=== PATIENT | female | born 1970 | race Caucasian/White ===

== ENCOUNTER 2016-02-17 13:44 | Observation (INO) ==
[2016-02-17] MEDS ORDERED: ONDANSETRON 4 MG/2 ML VIAL IV STA (14:58)
[2016-02-17] MEDS ORDERED: SODIUM CHLORIDE 0.9% 500 ML IV STA (14:58)
[2016-02-17] MEDS ORDERED: PANTOPRAZOLE 40 MG VIAL IV STA (14:58)
--- NOTE | 2016-02-17 15:00 | Emergency Department Note ---
Jared Nunez Meredith, am scribing for, and in the presence of, Jamar Johansen MD 14:58. Eleno Nunez Charles R, MD, personally performed the services described in this documentation, ascribed by Slime Coleman in my presence, and it is both accurate and complete . Arrival - Arrival Chief Complaint: GI Bleed/Rectal Stated Complaint: rectal bleed ED Nursing Triage Note: PT REPORTS BRIGHT RED RECTAL BLEEDING WITH CLOTS, ONSET 1300 TODAY. PT STATES SHE FELT LIKE SHE HAD TO HAVE BM BUT IT WAS LARGE AMOUNT OF BLOOD INSTEAD. PT STATES SOAKED A PAD IN THE PAST HOUR. REPORTS DULL ABD PAIN. Mode of Arrival: Ambulatory Limitations: No Limitations Source: Patient, RN Notes Reviewed Time Seen by Provider: 02/17/16 14:50 - History of Present Illness HPI Narrative: Pt is a 45 y/o white female reporting to the ED with c/o of bright red rectal bleeding with clots which onset at 1300. She filled one pad with blood in the past hour. Pt confirms recent abdominal pain and abdominal distention which she thought was related to a recent kidney stone. She has had a hysterectomy. Onset (ago): hour(s) Allergies/Adverse Reactions: Allergies Allergy/AdvReac Type Severity Reaction Status Date / Time No Known Allergies Allergy Verified 02/17/16 13:53 Home Medications: Home Medications Medication Instructions Recorded Confirmed Type No Known Home Medications [No 02/17/16 02/17/16 History Known Home Medications] Review of System - Review of System 12 point system: reviewed and no additional remarkable complaints except as stated - Review of System Gastrointestinal: Present: as per HPI, abdominal pain (with distention ), other (rectal bleeding ) Medical,Surgical,& Family Hx - Medical History Genitourinary: History of: Kidney Stones - Surgical History Reproductive Surgeries: Surgical HX of;: Hysterectomy (1997) - Social History Smoking Status: Never smoker Frequency of Alcohol Use: None Type of Drug Use: None Exam Vital Signs: Vital Signs Temperature 98.8 F 02/17/16 13:50 Pulse Rate 74 02/17/16 16:00 Respiratory Rate 20 02/17/16 16:00 Blood Pressure 105/73 02/17/16 16:00 O2 Sat by Pulse Oximetry 97 02/17/16 16:00 - General General appearance: alert, in no apparent distress - Head Head exam: Present: atraumatic, normocephalic - Eye Eye exam: Present: normal appearance, PERRL, EOMI - ENT ENT exam: Present: mucous membranes moist, normal external ear exam - Neck Neck exam: Present: full ROM, trachea midline. Absent: tenderness, meningismus , lymphadenopathy, thyromegaly - Chest Chest inspection: Present: symmetric chest wall rise. Absent: tenderness, rash - Respiratory Respiratory exam: Present: normal lung sounds bilaterally. Absent: respiratory distress - Cardiovascular Cardiovascular exam: Present: regular rate, normal rhythm, normal heart sounds. Absent: murmur, rubs, gallop - Abdominal Exam Abdominal exam: Present: distention, tenderness (left lower quadrant ), normal bowel sounds - Extremities Exam Extremities exam: Present: full ROM, normal capillary refill. Absent: tenderness, pedal edema, calf tenderness - Back Exam Back exam: Present: full ROM. Absent: tenderness - Neurological Exam Neurological exam: Present: alert, oriented X3, CN II-XII intact. Absent: motor sensory deficit - Psychiatric Psychiatric exam: Present: normal affect, normal mood - Skin Skin exam: Present: warm, dry, intact, normal color Course - Consultations Consultation #1: Dr. Rosado will admit for Dr. Schafer Time: 16:53 Results - Labs CBC & BMP: 02/17/16 15:24 02/17/16 15:24 Lab Results: I have reviewed the patients labs Labs: Laboratory Tests 02/17/16 02/17/16 02/17/16 15:24 15:24 15:24 WBC 9.6 RBC 4.79 Hgb 14.1 Hct 41.7 Plt Count 301 Meigs # (Auto) 0.9 H INR 1.0 PT Patient/Control Mix 10.0 Circ Anticoag PTT 27.6 Sodium 142 Potassium 3.3 L Chloride 107 Carbon Dioxide 26 BUN 11 Creatinine 0.70 Glucose 73 L Magnesium 2.5 H Troponin I < 0.015 Globulin 4.1 H Albumin/Globulin Ratio 0.9 L - Diagnostic Findings Procedure: Abdominal x-ray: report reviewed by me (Increased stool volume in the colon may indicate constipation. ), Chest x-ray: report reviewed by me (No acute cardiopulmonary process. ) Disposition Clinical Impression: Lower gastrointestinal hemorrhage Case discussed with: patient Disposition: Still a Patient Condition: Stable Time of Disposition: 16:53
[2016-02-17] MEDS ORDERED: PANTOPRAZOLE 40 MG VIAL IV ONE (15:27)
[2016-02-17] MEDS ORDERED: ONDANSETRON 4 MG/2 ML VIAL ONE (15:27)
[2016-02-17 15:33] LABS: Basophils # 0.1 10*3/uL (0.0-0.2); Basophils % 0.5 % (0.0-0.8); Eosinophils # 0.2 10*3/uL (0.0-0.87); Eosinophils % 1.7 % (0.00-10.9); Hematocrit 41.7 VOL% (35.7-47.0); Hemoglobin 14.1 GM/DL (12.0-16.0); Immature Granulocytes % 0.2 %; Immature Granulocytes Absolute 0.02 #; Lymphocytes # 2.6 10*3/uL (1.4-4.0); Lymphocytes % 27.2 % (21.3-54.2); Mean Corpuscular HGB Conc 33.8 GM/DL (32-36); Mean Corpuscular Hemoglobin 29 PG (27-34); Mean Corpuscular Volume 87.1 FL (87-102); Mean Platelet Volume 10.4 FL (9.6-12.0); Monocytes # 0.9 10*3/uL (0.11-0.8); Monocytes % 9.3 % (1.7-12.7); Neutrophils # 5.9 10*3/uL (1.4-7.4); Neutrophils % 61.1 % (38.7-73.9); Platelet Count 301 10*3/uL (130-400); Red Blood Count 4.79 10*6/uL (3.8-5.5); Red Cell Distribution Width 13.2 % (9.3-17.3); White Blood Count 9.6 10*3/uL (4.5-13.71)
[2016-02-17 15:43] LABS: Partial Thromboplastin Time 27.6 SECS (0-40)
--- NOTE | 2016-02-17 15:54 | XRay Report ---
XR abdomen 2V Indication: Abdominal pain Comparison: None available Findings: No free fluid or free air seen. Increased stool volume is seen in the colon. The bowel gas pattern otherwise appears within normal limits. No abnormal calcifications are present. No other abnormality is identified. Impression: Increased stool volume in the colon, may indicate constipation. PROCEDURE INTERPRETED AT [facility] DEPARTMENT OF RADIOLOGY Final Report Signed by: Dr. Aashish Mejia
--- NOTE | 2016-02-17 15:54 | XRay Report ---
XR chest 1V Indication: SOB Comparison: None Technique: Single frontal view of the chest Findings: Heart size appears within normal limits. No focal consolidation, pleural effusion, or pneumothorax. Osseous and surrounding soft tissue structures demonstrate no acute abnormality. Cervical fusion hardware noted within the lower cervical spine. IMPRESSION: No acute cardiopulmonary process demonstrated. PROCEDURE INTERPRETED AT [facility] DEPARTMENT OF RADIOLOGY Final Report Signed by: Dr Lex Borja
--- NOTE | 2016-02-17 15:55 | EKG Report ---
Stationary ECG Study [facility] ER Test Date: 02/17/2016 3:51:05 PM Pat Name: SAHIL CASTRO Department: Room: Gender: F Wine Specialist: COLIN : 1970 Requested by: Jamar Clark Order Number: [id number] Reading MD: JESUS PRINGLE Intervals [place] Rate: 71 P: 43 ND: 148 QRS: 17 QRSD: 82 T: 26 QT: 395 QTc: 417 Interpretive Statements SINUS RHYTHM at 71 bpm LOW QRS VOLTAGE IN PRECORDIAL LEADS WNL Electronically Signed On 02-17-16 16:31:40 GRASS [employer]UTTER by JESUS PRINGLE [email or web address]
[2016-02-17 16:03] LABS: Alanine Aminotransferase 20 U/L (13-56); Albumin 3.8 G/DL (3.4-5.0); Alkaline Phosphatase 74 U/L (45-117); Aspartate Amino Transferase 14 U/L (0-37); Bilirubin,Total < 0.39 MG/DL (0.2-1.0); Blood Urea Nitrogen 11 MG/DL (7-18); Calcium 8.7 MG/DL (8.5-10.1); Glucose 73 MG/DL (74-106); Magnesium 2.5 MG/DL (1.8-2.4); Osmolality,Calculated 280.1 MOS/KG (273-304); Potassium 3.3 MMOL/L (3.5-5.1); Sodium 142 MMOL/L (136-145); Total Protein 7.9 G/DL (6.4-8.3); Troponin I Only < 0.015 NG/ML (0.00-0.045)
[2016-02-17] MEDS ORDERED: POTASSIUM CHLORIDE 20 MEQ TABLET PO STA (16:30)
[2016-02-17] MEDS ORDERED: POTASSIUM CHLORIDE 20 MEQ TABLET PO ONE (16:51)
[2016-02-17] MEDS ORDERED: HYDROmorphone 2 MG/1 ML VIAL IV PRN (19:26)
[2016-02-17] MEDS ORDERED: ONDANSETRON 4 MG/2 ML VIAL IV PRN (19:26)
[2016-02-17] MEDS: DOCUSATE SODIUM 100 MG CAPSULE PO SCH (22:25)
[2016-02-17] MEDS: SODIUM CHLORIDE 0.9% 1,000 ML IV SCH (22:42)
[2016-02-18 05:37] LABS: Basophils # 0.1 10*3/uL (0.0-0.2); Basophils % 0.7 % (0.0-0.8); Eosinophils # 0.2 10*3/uL (0.0-0.87); Eosinophils % 2.8 % (0.00-10.9); Hematocrit 38.6 VOL% (35.7-47.0); Hemoglobin 12.3 GM/DL (12.0-16.0); Immature Granulocytes % 0.3 %; Immature Granulocytes Absolute 0.02 #; Lymphocytes # 2.3 10*3/uL (1.4-4.0); Lymphocytes % 30.6 % (21.3-54.2); Mean Corpuscular HGB Conc 31.9 GM/DL (32-36); Mean Corpuscular Hemoglobin 28 PG (27-34); Mean Corpuscular Volume 89.1 FL (87-102); Mean Platelet Volume 10.6 FL (9.6-12.0); Monocytes # 0.7 10*3/uL (0.11-0.8); Monocytes % 9.7 % (1.7-12.7); Neutrophils # 4.2 10*3/uL (1.4-7.4); Neutrophils % 55.9 % (38.7-73.9); Platelet Count 275 10*3/uL (130-400); Red Blood Count 4.33 10*6/uL (3.8-5.5); Red Cell Distribution Width 13.2 % (9.3-17.3); White Blood Count 7.4 10*3/uL (4.5-13.71)
[2016-02-18 06:09] LABS: Bilirubin,Total 0.8 MG/DL (0.2-1.0); Calcium 7.9 MG/DL (8.5-10.1); Magnesium 2.3 MG/DL (1.8-2.4); Osmolality,Calculated 282.8 MOS/KG (273-304); Potassium 4.1 MMOL/L (3.5-5.1); Risk Ratio 4.34; Total Protein 6.3 G/DL (6.4-8.3); VLDL CHOLESTEROL 19.2 MG/DL
--- NOTE | 2016-02-18 08:10 | Family Practice History&Phys ---
Assessment and Plan (1) History of palpitations Status: Acute Assessment and plan: 02/18/2016: Patient's not having any palpitations at present. We do have her on the monitor. I will plan on getting outpatient evaluation. Will get a TSH and an EKG if not done Current Visit: Yes (2) Lower gastrointestinal hemorrhage Status: Acute Assessment and plan: 02/18/2016: Not had any further GI bleeding not having any abdominal pain but we 'll get GI to see her. She is nothing by mouth Current Visit: Yes History of Present Illness Chief complaint: rectal bleeding History of present illness: Ms. Simons is a 45 year old female Very pleasant lady who I'm known for some time. Came in to the emergency room last night with a GI bleed. States that it started about 1 o'clock yesterday afternoon while she was at work. Woke up doing fine yesterday and started having some mild upper right abdominal pain and he thought it was kidney stones which she has had before. She's never had a GI bleed before. Nonetheless she went to the bathroom and had a large number of clots and bright red blood. She denies any hemorrhoids. She was having some mild to moderate cramping at the time. Patient does not smoke or drink or use illicit drugs. She has been working a lot lately doing 2 jobs. Was up to about 3 weeks ago drinking a lot of caffeine but slow down this because she started having palpitations which went as high as "150." She is on the monitor at this time and not had any sexually been in the hospital. Biggest problem today aren't is the bleed which could be AV malformation, ischemic colitis, possible internal hemorrhoids. I'm going to get GI to see and appreciate their assistance on this case. She has not had any episodes section been in the hospital Home Medications Medication Instructions Recorded Confirmed Type No Known Home Medications [No 02/17/16 02/17/16 History Known Home Medications] Allergies Allergy/AdvReac Type Severity Reaction Status Date / Time No Known Allergies Allergy Verified 02/17/16 13:53 12 point system: reviewed and no additional remarkable complaints except as stated (as mentioned above.) Medical,Surgical,& Family Hx - Medical History Cardio: History of: Cardiac Dysrhythmia, Cardiovascular Problems (tachycardia) Psychological: History of: Anxiety Disorders Genitourinary: History of: Kidney Stones - Surgical History Abdominal Surgeries: Surgical HX of: Appendectomy Reproductive Surgeries: Surgical HX of;: Hysterectomy (1997) Orthopedic Surgeries: Surgical HX of;: Implanted Devices (spinal fusion 2014 plate and screws in neck) - Family History Family History: Reports;: Family Cancer (LUNG CA MOM), Family Hypertension ( both parents HTN), Additional Family History (ALS Dad) - Social History Smoking Status: Never smoker Frequency of Alcohol Use: None Type of Drug Use: None Exam - Constitutional Vitals: Period Temp Pulse Resp BP Sys/Norris Pulse Ox Last 24 Hr 97.8 F-99.2 F 64-68 15-18 92-115/57-72 96-98 Exam: Generally very well-developed female was alert and oriented and answers all questions appropriately is very cognitive psychologically and emotionally stable HEENT pupils equal reactive to light obstructive movements intact neck is supple trachea midline there is no scleral icterus. Cardiovascular rate is regular no gallop or rub no murmur. She is on a Holter monitor Lungs are clear bilaterally no shortness of breath wheezing (she does have a history of using albuterol in the past but has not needed it lately) Abdomen soft nondistended nontender no right upper quadrant tenderness left lower quadrant tenderness or any suprapubic pain. Mr. normal bladder functioning Extremities no clubbing cyanosis edema Neurologically fully intact Results - Labs CBC & BMP: 02/18/16 04:58 02/18/16 04:58
--- NOTE | 2016-02-18 08:31 | XRay Report ---
History: Abdominal pain Date: 02/18/2016 Study: Flat and erect abdomen Comparison exam: Abdominal x-ray 02/17/2016 There is no evidence of pneumoperitoneum. The bowel gas pattern is nonobstructive without gross mass lesion. There is mild to moderate amount of residual stool in the normal caliber colon. Phleboliths overlie the left hemipelvis. The osseous structures are unchanged. Impression: No acute abdominal process PROCEDURE INTERPRETED AT [facility] DEPARTMENT OF RADIOLOGY Final Report Signed by: Dr. Didi Rehman
[2016-02-18] MEDS: PANTOPRAZOLE 40 MG VIAL IV SCH (08:57)
[2016-02-18] MEDS: DOCUSATE SODIUM 100 MG CAPSULE PO SCH ×2 (09:00→21:14)
[2016-02-18] MEDS: SODIUM CHLORIDE 0.9% 1,000 ML IV SCH ×2 (11:28→23:54)
[2016-02-18] MEDS ORDERED: BISACODYL 5 MG TABLET PO ONE (12:00)
--- NOTE | 2016-02-18 12:13 | Gastrointestinal Consult Note ---
Assessment and Plan (1) Lower gastrointestinal hemorrhage Status: Acute Assessment and plan: 02/17-Sudden onset of bright red rectal bleeding, w/o stool, with lower abd cramping, nausea. No prior history of GI bleed. No prior endoscopy. Hgb stable at 12. Last bleeding occurring last night. Plan and addendum to follow by DR Rehman. Current Visit: Yes History of Present Illness Chief complaint: Rectal bleeding History of present illness: Ms. Simons is a 45 year old female who presents to the hospital with onset of bright red rectal bleeding. 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 She went to the bathroom to have a bowel movement and instead she had a moderate amount of bright red bleeding with dark red clots. She states that she had no stool with this. The physician she worked with witnessed the bleeding and encouraged her to come the the hospital then. She states it continued several more times, all without stool, and with lower abdominal cramping until she decided to come to the ER for further evaluation. She states she did have some nausea however denies any vomiting. She denies any fever or chills. Denies any recent weight loss. States she has never had bleeding like this in the past. She was on a holter monitor for some recent heart palpitations which she felt was related to increased caffeine consumption. She denies any family history of GI diseases, colon cancer however states her son has IBS. She has had no prior problems with her bowels and reports she had a good, normal BM a little prior to the bleeding onset. Denies any NSAID use. She has hx of GERD that is well controlled w/o a PPI at present. Hgb is stable at 12. Home Medications Medication Instructions Recorded Confirmed Type No Known Home Medications [No 02/17/16 02/17/16 History Known Home Medications] Allergies Allergy/AdvReac Type Severity Reaction Status Date / Time No Known Allergies Allergy Verified 02/17/16 13:53 Medical,Surgical,& Family Hx - Medical History Cardio: History of: Cardiac Dysrhythmia, Cardiovascular Problems (tachycardia) Psychological: History of: Anxiety Disorders Genitourinary: History of: Kidney Stones - Surgical History Abdominal Surgeries: Surgical HX of: Appendectomy Reproductive Surgeries: Surgical HX of;: Hysterectomy (1997) Orthopedic Surgeries: Surgical HX of;: Implanted Devices (spinal fusion 2014 plate and screws in neck) - Family History Family History: Reports;: Family Cancer (LUNG CA MOM), Family Hypertension ( both parents HTN), Additional Family History (ALS Dad) - Social History Smoking Status: Never smoker Frequency of Alcohol Use: None Type of Drug Use: None 12 point system: reviewed and no additional remarkable complaints except as stated - Constitutional Constitutional: Present: as per HPI - EENT Eyes: Present: as per HPI Ears: Present: as per HPI Nose, mouth and throat: Present: as per HPI - Cardiovascular Cardiovascular: Present: as per HPI - Respiratory Respiratory: Present: as per HPI - Gastrointestinal Gastrointestinal: Present: as per HPI, abdominal pain, cramping, hematochezia, nausea - Genitourinary Genitourinary: Present: as per HPI - Musculoskeletal Musculoskeletal: Present: as per HPI - Neurological Neurological: Present: as per HPI - Psychiatric Psychiatric: Present: as per HPI - Endocrine Endocrine: Present: as per HPI - Hematologic/Lymphatic Hematologic/Lymphatic: Present: as per HPI Exam - Constitutional Vitals: Period Temp Pulse Resp BP Sys/Norris Pulse Ox Last 24 Hr 97.8 F-99.2 F 64-68 15-20 92-115/57-72 96-99 General appearance: normal weight, no acute distress - Head Head exam: Present: normal inspection, normocephalic - Eye Eye exam: Present: other (lids and conjunctiva unremarakble). Absent: scleral icterus - ENT ENT exam: Present: normal exam, normal oropharynx - Neck Neck exam: Present: normal inspection - Respiratory Respiratory exam: Present: clear to auscultation bilaterally. Absent: rales, rhonchi, wheezes - Cardiovascular Cardiovascular exam: Present: regular rate and rhythm. Absent: diastolic murmur , JVD, systolic murmur - GI/Abdominal GI/Abdominal exam: Present: normal bowel sounds, soft. Absent: ascites, distended, mass, organomegaly, tenderness - Extremities Exam Extremities exam: Present: normal inspection, full ROM - Back Exam Back exam: Present: normal inspection - Neurological Exam Neurological exam: Present: alert, oriented X3 - Psychiatric Psychiatric exam: Present: normal affect, normal mood - Skin Skin exam: Present: normal color, warm, dry Results - Labs CBC & BMP: 02/18/16 04:58 01/12/17 04:58 Lab Results: I have reviewed the past 24 hour labs - Diagnostic Findings Procedure: Abdominal x-ray: report reviewed by me
[2016-02-18] MEDS: ACETAMINOPHEN 325 MG TABLET PO PRN (13:26)
[2016-02-18] MEDS ORDERED: POLYETHYLENE GLYCOL POWDER 255 GM BOTTLE PO ONE (18:00)
[2016-02-19] MEDS: ACETAMINOPHEN 325 MG TABLET PO PRN ×2 (01:21→13:58)
[2016-02-19] MEDS ORDERED: MAGNESIUM CITRATE 300 ML BOTTLE PO ONE (06:00)
[2016-02-19] MEDS: PANTOPRAZOLE 40 MG VIAL IV SCH (08:19)
[2016-02-19] MEDS: DOCUSATE SODIUM 100 MG CAPSULE PO SCH (08:21)
--- NOTE | 2016-02-19 13:09 | History and Physical Update ---
History and Physical Update - Physical Exam Mental Status: alert and oriented Heart: regular rate and rhythm Lung: clear to auscultation Abdomen: within normal limits Vitals: within normal limits History and Physical Changes: 45-year-old female is admitted with lower GI bleeding. She has not required transfusion.
--- NOTE | 2016-02-19 13:11 | Operative Note ---
Date of procedure: 02/19/16 Pre-op diagnosis: Lower GI bleed Procedure: Procedure note: Colonoscopy Physician: Dr. Tigre Rehman Brief clinical abstract: Patient is a 45-year-old female admitted with lower GI bleed. She had similar abdominal cramps initially with this but denies real abdominal pain and has been nontender on exam. Her hemoglobin has fallen from 14-12.3. Endoscopic findings: After informed consent was obtained, the patient was placed in the left lateral decubitus position. Digital rectal exam was performed with no palpable abnormalities felt. Pediatric videocolonoscope was inserted into the rectum and advanced to the cecum without difficulty. Retroflex view within the cecum was performed back to the level of the hepatic flexure. The endoscope was advanced back to the cecum and on withdrawal colonic mucosa was carefully examined. Bowel prep was of excellent quality. Withdrawal time was over 6 minutes duration. Withdrawal no polyps were seen. There were a few small diverticula in the ascending and sigmoid colon. No bleeding stigmata were seen. No blood was noted in the colon. The endoscope was withdrawn in the rectum with retroflex view showing small internal hemorrhoids. The endoscope was withdrawn. She appeared to tolerate the procedure well. Impression: #1 diverticulosis coli-likely source of bleeding #2 small internal hemorrhoids Plan: Advance diet and could probably discharge soon if tolerating with no sign of further bleeding. Anesthesia: MAC Surgeon / Physician: Ronal Rehman Estimated blood loss: none Specimens: none sent Condition: stable Disposition: post procedure unit Results - Labs CBC & BMP: 02/18/16 04:58 02/18/16 04:58 Discharge Plan - Discharge Medications No Action No Known Home Medications [No Known Home Medications] - Follow Up or Referral - Forms/Instructions
--- NOTE | 2016-02-19 13:15 | Anesthesia ---
Anesthesia Post OP - Post Ansesthetic Evaluation Patient seen in post op: Yes Resp: within normal limits CV: within normal limits Mental: within normal limits Temp: within normal limits [id number]: within normal limits Nausea and Vomiting: within normal limits Pain: within normal limits
[2016-02-19] MEDS: SODIUM CHLORIDE 0.9% 1,000 ML IV SCH (13:58)
[2016-02-19] MEDS ORDERED: ACETAMINOPHEN 325 MG TABLET PO PRN (14:15)
--- NOTE | 2016-02-19 15:50 | Discharge Summary ---
Hospital Course - Hospital Course Hospital Course: Patient came to the hospital with GI bleed which began several hours prior to arrival. During hospitalization she had no further bleeding but it was described as bright red when she had it and a significant amount. She underwent a colonoscopy after being nothing by mouth for a day and having bowel cleansing. There was no obvious source of bleeding at the time and the patient had no recurrence. She tolerated procedure well and I have since seen her in the clinic and she has done well since discharge except for being somewhat weak , however has had not had any reoccurrence bleeding. We'll continue to monitor closely told her if she had any further episodes to come to clinic Diagnosis - Discharge Diagnosis (1) History of palpitations Status: Acute (2) Lower gastrointestinal hemorrhage Status: Acute Specialty Discharge - Follow Up or Referrals Follow up with: Raghu Schafer DO [Physician] - 2 Weeks Discharge Plan - Discharge Data Disposition: Disch To Home/Self Care Condition at Discharge: Stable Discharge Diet: advance to your usual diet, no caffiene Activity: resume usual activities as tolerated Hygiene: no restrictions Weight Bearing at Discharge: weight bear as tolerated Driving: no restrictions Contact your physician if you experience:: fever over 101, Nausea/Vomiting, Bleeding - Discharge Medications Continue No Known Home Medications [No Known Home Medications] - Follow Up or Referral Follow Up: Raghu Schafer DO [Physician] - 2 Weeks - Forms/Instructions Forms: Acute Care Work/School Release Exam - Constitutional Vitals: Period Temp Pulse Resp BP Sys/Norris Pulse Ox Last 24 Hr 97.5 F-98.1 F 66-79 13-20 78-132/53-81 97-100 DS: Provider Date of admission: 02/17/16 16:54 Primary care physician: Nonstaff Physician Attending physician on admission: Raghu Schafer DO Consults: 02/17/16 19:26 Consult to Case Mgmt/Social Srvs [CONS] Routine Reason for Case Mgmt/Social Srvs: Discharge Planning Consult to Physician [CONS] Routine Comment: GI bleed Consulting Provider: Ronal Rehman When should Consulting Provider be notified: In am Person Notified: [email or web address] Date Notified: 02/18/16 Time Notified: 11:10 Discharging clinician: Raghu Schafer DO
--- NOTE | 2016-02-19 15:56 | Event Note ---
Patient alert and comfortable after her colonoscopy today. Discussed with her and I instructed her to notify us if she has any recurrent bleeding. Agree with plans to discharge in the morning if remains stable. Dr. Stauffer is production quality analyst this weekend and available if needed.
[2016-02-19 16:38] VITALS: BP 93/65
== END 2016-02-19 16:39 | disposition home or self-care (01) ==
LOC: N.ED 13:44 → N.EDINP 16:54 → INTOOBSV 16:54 → N.EDINP 19:03 → N.2E 19:25
PROVIDERS: ADMIT Family Medicine; ATTEND Family Medicine

== ENCOUNTER 2018-03-08 13:22 | Observation (INO) ==
[2018-03-08] MEDS ORDERED: ENOXAPARIN 100 MG/ML SYRINGE SUBCUT STA (13:47)
[2018-03-08] MEDS ORDERED: ASPIRIN 325 MG TABLET PO STA (13:47)
[2018-03-08 14:14] LABS: Basophils # 0.1 10*3/uL (0.0-0.2); Basophils % 0.6 % (0.0-0.8); Eosinophils # 0.2 10*3/uL (0.0-0.87); Eosinophils % 2.3 % (0.00-10.9); Hematocrit 39.7 VOL% (35.7-47.0); Hemoglobin 13.3 GM/DL (12.0-16.0); Immature Granulocytes % 0.6 %; Immature Granulocytes Absolute 0.05 #; Lymphocytes # 2.1 10*3/uL (1.4-4.0); Lymphocytes % 23.9 % (21.3-54.2); Mean Corpuscular HGB Conc 33.5 GM/DL (32-36); Mean Corpuscular Hemoglobin 29 PG (27-34); Mean Corpuscular Volume 87.8 FL (87-102); Mean Platelet Volume 10.4 FL (9.6-12.0); Monocytes # 0.6 10*3/uL (0.11-0.8); Monocytes % 6.4 % (1.7-12.7); Neutrophils # 5.9 10*3/uL (1.4-7.4); Neutrophils % 66.2 % (38.7-73.9); Platelet Count 332 T/CUMM (130-400); Red Blood Count 4.52 MC/CUMM (3.8-5.5); Red Cell Distribution Width 13.2 % (9.3-17.3); White Blood Count 8.9 T/CUMM (4-12)
[2018-03-08 14:33] LABS: Alanine Aminotransferase 17 U/L (13-56); Albumin 3.4 G/DL (3.4-5.0); Alkaline Phosphatase 88 U/L (45-117); Aspartate Amino Transferase 14 U/L (0-37); Bilirubin,Total < 0.39 MG/DL (0.2-1.0); Blood Urea Nitrogen 8 MG/DL (7-18); Calcium 8.6 MG/DL (8.5-10.1); Glucose 127 MG/DL (74-106); Osmolality,Calculated 276.5 MOS/KG (273-304); Potassium 3.3 MMOL/L (3.5-5.1); Sodium 139 MMOL/L (136-145); Total Protein 7.1 G/DL (6.4-8.3)
[2018-03-08 14:57] LABS: T4 (Thyroxine) 8.1 UG/DL (4.7-13.3); Thyroid Stimulating Hormone 2.06 uIU/ml (0.358-3.74)
[2018-03-08] MEDS ORDERED: ACETAMINOPHEN 325 MG TABLET PO PRN (14:57)
[2018-03-08] MEDS ORDERED: ONDANSETRON 4 MG/2 ML VIAL IV PRN (14:57)
[2018-03-08] MEDS ORDERED: ALBUTEROL 1.25 MG/3 ML NEB RESP TX PRN (16:45)
[2018-03-08] MEDS: FLUoxetine 20 MG CAPSULE PO SCH (21:42)
[2018-03-08] MEDS: DOCUSATE SODIUM 100 MG CAPSULE PO SCH (21:42)
[2018-03-09 08:07] LABS: Calcium 8.4 MG/DL (8.5-10.1); Osmolality,Calculated 271.8 MOS/KG (273-304); Potassium 3.7 MMOL/L (3.5-5.1)
[2018-03-09] MEDS ORDERED: PANTOPRAZOLE 40 MG TABLET PO SCH ×2 (09:00)
[2018-03-09] MEDS: POTASSIUM CHLORIDE 20 MEQ TABLET PO PRN (09:31)
[2018-03-09] MEDS: DOCUSATE SODIUM 100 MG CAPSULE PO SCH ×2 (09:32→21:07)
[2018-03-09] MEDS: PANTOPRAZOLE 40 MG TABLET PO SCH (21:06)
[2018-03-09] MEDS: FLUoxetine 20 MG CAPSULE PO SCH (21:06)
[2018-03-10] MEDS: PANTOPRAZOLE 40 MG TABLET PO SCH ×2 (09:26→21:09)
[2018-03-10] MEDS: DOCUSATE SODIUM 100 MG CAPSULE PO SCH ×2 (09:26→21:09)
[2018-03-10] MEDS: POTASSIUM CHLORIDE 20 MEQ TABLET PO PRN (09:27)
[2018-03-10] MEDS: FLUoxetine 20 MG CAPSULE PO SCH (21:09)
[2018-03-11 04:03] LABS: Calcium 8.7 MG/DL (8.5-10.1); Osmolality,Calculated 271.8 MOS/KG (273-304); Potassium 4.1 MMOL/L (3.5-5.1)
[2018-03-11] MEDS: DOCUSATE SODIUM 100 MG CAPSULE PO SCH ×2 (09:26→21:44)
[2018-03-11] MEDS: PANTOPRAZOLE 40 MG TABLET PO SCH ×2 (09:26→21:44)
[2018-03-11] MEDS: FLUoxetine 20 MG CAPSULE PO SCH (21:44)
[2018-03-12] MEDS ORDERED: PROPOFOL 200 MG/20 ML VIAL IV ONE (10:00)
[2018-03-12] MEDS ORDERED: LIDOCAINE 2% 5 ML VIAL ONE (10:00)
[2018-03-12] MEDS: DOCUSATE SODIUM 100 MG CAPSULE PO SCH (10:23)
[2018-03-12] MEDS: PANTOPRAZOLE 40 MG TABLET PO SCH (10:23)
[2018-03-12 15:57] VITALS: BP 160/65
[2018-03-12] MEDS ORDERED: ONDANSETRON 4 MG TABLET PO PRN (17:19)
== END 2018-03-12 19:00 | disposition home or self-care (01) ==
LOC: N.EDINP 13:22 → N.ED 13:22 → N.TELES 16:11
PROVIDERS: ADMIT Family Medicine; ATTEND Family Medicine